=== PATIENT | female | born 1950 | race Caucasian/White ===

== ENCOUNTER → 2019-11-28 | Outpatient (CLI) | payer MEDICARE | END | disposition home or self-care (01) | LOC: LAB SHORT 14:09 → PLD 14:09 | DX: D37.09 Neoplasm of uncertain behavior of other specified sites of the oral cavity (principal) | CPT/HCPCS: 88305 ==

== ENCOUNTER 2023-07-18 16:50 | Inpatient (IN) | payer MEDICARE ==
[~2023-07-18] VITALS: Ht 157.5 cm; Wt 67.4 kg
[2023-07-18] MEDS ORDERED: NS 1,000 ML IV SCH (17:00)
[2023-07-18] MEDS ORDERED: MELO7.5 PO (17:26)
[2023-07-18] MEDS ORDERED: ATOR10 PO (17:27)
[2023-07-18] MEDS ORDERED: ESTR2 PO (17:27)
[2023-07-18] MEDS ORDERED: HYDROCODONE-AC1 EA19 PO (17:27)
[2023-07-18] MEDS ORDERED: TEMA30 PO (17:27)
[2023-07-18] MEDS ORDERED: Azithromycin 500 MG in NS 250 ML IV ONE ×2 (17:30→17:50)
[2023-07-18] MEDS ORDERED: CefTRIAXone Sodium 1,000 MG in NS 100 ML IV ONE (17:35)
[2023-07-18] MEDS ORDERED: Benzonatate 100 MG Cap PO PRN (18:10)
[2023-07-18] MEDS ORDERED: Ondansetron HCl 2 MG / ML 2ML Vial IV PRN (18:15)
[2023-07-18] MEDS ORDERED: TraMADol HCl 50 MG Tab PO PRN (18:15)
[2023-07-18] MEDS ORDERED: Temazepam 15 MG Cap PO PRN (18:15)
[2023-07-18] MEDS ORDERED: Lactated Ringer's 1,000 ML IV SCH (18:15)
[2023-07-18] MEDS ORDERED: Acetaminophen 325 MG TABLET PO PRN (18:15)
[2023-07-18] MEDS ORDERED: Piperacillin/Tazobactam Sod 3.375 GM in NS 100 ML IV ONE (19:00)
[2023-07-18] MEDS ORDERED: PAXIL2010 PO (19:10)
[2023-07-18 21:00] VITALS: BP 96/52
[2023-07-18] MEDS ORDERED: GuaiFENesin 600 MG TabCR PO SCH (21:00)
[2023-07-18] MEDS ORDERED: Lactobacil 2-S.Thermo-Bifido 1 1 Cap PO SCH (21:00)
[2023-07-18 21:15] VITALS: BP 103/65
[2023-07-18 21:30] VITALS: BP 98/69
[2023-07-19] VITALS (9 sets, daily range): BP systolic 107–157; BP diastolic 53–97
[2023-07-19] MEDS ORDERED: Piperacillin/Tazobactam Sod 3.375 GM in NS 100 ML IV SCH (03:00)
[2023-07-19 04:02] LABS: Hematocrit 37.8 % (33.0-51.0); Hemoglobin 12.4 g/dL (11.5-16.0); Mean Corpuscular HGB 29.7 pg (26.0-34.0); Mean Corpuscular HGB Conc 32.8 g/dL (31.5-36.5); Mean Corpuscular Volume 90 fL (80-100); Mean Platelet Volume 9.8 fL (9.1-12.4); Platelet Count 452 K/mm3 (150-400); RDW Coefficient Variation 13.5 % (11.7-14.2); RDW Standard Deviation 45.7 fL (35.1-46.3); Red Blood Cell Count 4.18 M/mm3 (3.80-5.20); White Blood Cell Count 45.57 K/mm3 (4.00-11.30)
[2023-07-19 04:19] LABS: Albumin, Blood 2.2 g/dL (3.4-5.0); Albumin/Globulin Ratio 0.5 (0.8-1.8); Bilirubin, Total 1.2 mg/dL (0.1-1.0); Bun/Creatinine Ratio 15.1 (12.0-20.0); Calcium, Blood 8.3 mg/dL (8.5-10.1); Creatinine, Blood 0.93 mg/dL (0.40-1.00); Globulin, Blood 4.6 g/dL (2.2-4.0); Potassium, Blood 3.9 mmol/L (3.5-5.5); Total Protein, Blood 6.8 g/dL (6.4-8.2)
[2023-07-19 04:29] LABS: International Normalized Ratio 1.08; Prothrombin Time Results 11.3 Sec (9.7-11.5)
[2023-07-19 04:43] LABS: BAND PERCENT MAN 11 % (0-8); BASOPHILS PERCENT MAN 0 % (0-2); EOSINOPHILS PERCENT MAN 0 % (0-6); LYMPHOCYTES ABSOLUTE MAN 0.91 K/mm3 (0.84-5.20); LYMPHOCYTES PERCENT MAN 2 % (21-46); MONOCYTES ABSOLUTE MAN 1.82 K/mm3 (0.16-1.47); MONOCYTES PERCENT MAN 4 % (4-13); NEUTROPHILS ABSOLUTE MAN 42.83 K/mm3 (1.96-9.15); SEG NEUTROPHILS PERCENT MAN 83 % (41-73); TOTAL CELLS COUNTED 100
[2023-07-19] MEDS ORDERED: Omeprazole 20 MG CapCR PO SCH (06:00)
--- NOTE | 2023-07-19 07:17 | NUR ---
SHIFT SUMMARY PATIENT ARRIVED TO PCU 07 VIA STRETCHER AT 2042. SHE IS ALERT AND ORIENTED X4 AND ABLE TO AMBULATE TO THE RESTROOM AND BACK TO BED WITH MINIMAL ASSISTANCE TO HELP WITH LINE MANAGEMENT. PATIENT HAS BEEN COMPLAINING OF RIGHT SIDED PAIN REACHING FROM HER RIBS DOWN TO HER HIP, MEDICATED PER EMAR FOR PAIN. PATIENT IS ON 3 LITERS O2 VIA NASAL CANULA WITH SPO2 >90%, BECOMES DYSPNIC AND TACHYPNIC UPON EXERTION. PATIENT'S VITAL SIGNS STABLE, SINUS RHYTHM/SINUS TACH IN THE LOW 100'S ON TELE, DENIES CHEST PAIN/PRESSURE. NO ACUTE ISSUES NOTED OVERNIGHT. WILL CONTINUE TO MONITOR. CALL LIGHT WITHIN REACH.
[2023-07-19] MEDS ORDERED: Enoxaparin 40 MG/0.4 ML SYR SC SCH (09:00)
[2023-07-19] MEDS ORDERED: Atorvastatin 10 MG Tab PO SCH (09:00)
--- NOTE | 2023-07-19 09:44 | NUR ---
GAVE PT. MEDS SHE ASKED SOME QUESTIONS REGARDING WHAT THEY WERE FOR AND WE TALKED ABOUT THEM. ATE BREAKFAST AND IS RESTING IN HER ROOM.
[2023-07-19] MEDS ORDERED: Ipratropium/Albuterol SulF 2.5-0.5MG/3 ML Amp INH PRN (12:50)
[2023-07-19] MEDS ORDERED: Lactated Ringer's 500 ML IV SCH (14:00)
[2023-07-19] MEDS ORDERED: Vancomycin HCL 1,000 MG in NS 100 ML IV ONE (14:00)
[2023-07-19] MEDS ORDERED: NS 250 ML IV PRN (15:25)
[2023-07-19 16:59] LABS: Appearance, Body Fluid Clear (Clear); Color, Body Fluid Yellow (None-Yellow)
[2023-07-19 17:02] LABS: Automated BF RBC Count 0.024 M/mm3 (0-0); Automated BF WBC Count 1.693 K/mm3 (0-999)
[2023-07-19 17:04] LABS: Body Fluid WBC Count 1693 /mm3 (0-999); RBC Count, Body Fluid 24000 /mm3 (0-0)
[2023-07-19 17:08] LABS: Glucose, Body Fluid 4 mg/dL; Glucose, Body Fluid 8 mg/dL
[2023-07-19 17:15] LABS: Lactate Dehydrogenase, Body Fl 1125 U/L; Lactate Dehydrogenase, Body Fl 1147 U/L; Protein, Body Fluid 5.2 g/dL; Protein, Body Fluid 5.3 g/dL
[2023-07-19 17:28] LABS: Total Cell Count, Body Fluid 100
[2023-07-19 17:32] LABS: Total Cell Count, Body Fluid 100
[2023-07-19 17:33] LABS: Appearance, Body Fluid Cloudy (Clear); Color, Body Fluid Amber (None-Yellow)
--- NOTE | 2023-07-19 17:41 | NUR ---
END OF SHIFT SUMMARY: PT WAS GREAT AND IN GOOD SPIRITS THIS SHIFT. WAS ON OXYGEN AND WANTED TO GO HOME BUT WAS WAITING TO SEE THE DOCTOR. WAS AT [facility] AND THE SON & DAUGHTER WERE IN AND OUT THROUGHOUT THE DAY. SHE IS A 1 ASSIST WHEN GOING TO THE BATHROOM BUT THE DAY WENT ON SHE DECLINED. SHE APPEARED TO BE BREATHING HARDER AND HAD A RAISE IN TEMPERATURE. THE DOCTOR WAS NOTIFIED AND HE CAME TO [facility], ORDERED A CHEST X-RAY TO RULE OUT A PE. RESULT WAS NEGATIVE FOR A PE BUT DID HAVE A CHEST TUBE INSERTED AT [facility] BY DR. DANG. CULTURES WERE SENT TO THE LAB FOR SPECIMENS PULLEED FROM THE BEDSIDE PROCEDURE AWAITING RESULTS. HAD DINNER AND NOW HAS A BEDSIDE COMMODE TO USE INSTEAD OF GOING TO THE BATHROOM. IS RESTING AND IS STAYING THE NIGHT.
[2023-07-19] MEDS ORDERED: Azithromycin 500 MG in NS 250 ML IV SCH (18:00)
[2023-07-20 02:57] VITALS: BP 142/88
--- NOTE | 2023-07-20 04:30 | NUR ---
SHIFT SUMMARY. SHIFT HAS BEEN LARGELY UNREMARKABLE. PT AOX4, PLEASANT, COOPERATIVE WITH CARE, CALLS APPROPRIATELY FOR ASSISTANCE, ABLE TO MAKE NEEDS KNOWN. CHEST TUBE REMAINS IN PLACE AND ATTACHED TO SUCTION, REVIEWED SETUP WITH [employer]IC[employer] RUSS IBANEZ, FUNCTIONING INTENDED. PAIN HAS BEEN VERY MILD AND WELL MANAGED VIA EMAR. PT HAS MAINTAINED ADEQUATE SATURATION ON 1 L O2 VIA NC WHILE AWAKE AND ASLEEP. VITALS OTHERWISE STABLE. FLUIDS INFUSING THROUGHOUT SHIFT PER EMAR. SBA TRANSFER TO BSC. HAS BEEN ABLE TO SLEEP SPORADICALLY THROUGHOUT SHIFT. HAS BEEN AT BEDSIDE THROUGHOUT SHIFT AND ASSISTS IN MAKING NEEDS KNOWN. BED LOCKED IN LOWEST POSITION. CALL LIGHT LEFT WITHIN REACH. CONTINUING TO MONITOR.
[2023-07-20 05:01] LABS: BASOPHILS ABSOLUTE AUTO 0.11 K/mm3 (0.00-0.23); BASOPHILS PERCENT AUTO 0 % (0-2); EOSINOPHILS ABSOLUTE AUTO 0.24 K/mm3 (0.00-0.68); EOSINOPHILS PERCENT AUTO 1 % (0-6); Hematocrit 36.4 % (33.0-51.0); IMMATURE GRAN ABSOLUTE AUTO 0.45 K/mm3 (0.00-0.10); IMMATURE GRAN PERCENT AUTO 1 % (0-1); LYMPHOCYTES ABSOLUTE AUTO 1.23 K/mm3 (0.84-5.20); LYMPHOCYTES PERCENT AUTO 3 % (21-46); MONOCYTES ABSOLUTE AUTO 2.16 K/mm3 (0.16-1.47); MONOCYTES PERCENT AUTO 6 % (4-13); Mean Corpuscular HGB 30.1 pg (26.0-34.0); Mean Corpuscular Volume 91 fL (80-100); Mean Platelet Volume 10.4 fL (9.1-12.4); NEUTROPHILS ABSOLUTE AUTO 32.64 K/mm3 (1.96-9.15); NEUTROPHILS PERCENT AUTO 89 % (41-73); Platelet Count 433 K/mm3 (150-400); RDW Coefficient Variation 13.9 % (11.7-14.2); RDW Standard Deviation 46.8 fL (35.1-46.3); Red Blood Cell Count 3.99 M/mm3 (3.80-5.20); White Blood Cell Count 36.83 K/mm3 (4.00-11.30)
[2023-07-20 05:03] LABS: Albumin, Blood 1.6 g/dL (3.4-5.0); Albumin/Globulin Ratio 0.4 (0.8-1.8); Bilirubin, Total 0.9 mg/dL (0.1-1.0); Bun/Creatinine Ratio 12.9 (12.0-20.0); Creatinine, Blood 0.7 mg/dL (0.40-1.00); Globulin, Blood 4.3 g/dL (2.2-4.0); Potassium, Blood 3.9 mmol/L (3.5-5.5); Total Protein, Blood 5.9 g/dL (6.4-8.2)
[2023-07-20 06:32] LABS: BAND PERCENT MAN 1 % (0-8); BASOPHILS PERCENT MAN 0 % (0-2); EOSINOPHILS ABSOLUTE MAN 0.36 K/mm3 (0.00-0.68); EOSINOPHILS PERCENT MAN 1 % (0-6); LYMPHOCYTES PERCENT MAN 3 % (21-46); MONOCYTES ABSOLUTE MAN 2.57 K/mm3 (0.16-1.47); MONOCYTES PERCENT MAN 7 % (4-13); NEUTROPHILS ABSOLUTE MAN 32.77 K/mm3 (1.96-9.15); SEG NEUTROPHILS PERCENT MAN 88 % (41-73); TOTAL CELLS COUNTED 100
[2023-07-20 07:30] VITALS: BP 141/72
[2023-07-20] MEDS ORDERED: Lactated Ringer's 1,000 ML IV SCH (07:40)
[2023-07-20 11:27] VITALS: BP 122/66
[2023-07-20] MEDS ORDERED: Alteplase 1 MG/ML 10 MG,NS 30 ML in Syringe 1 SYR XX SCH (11:35)
[2023-07-20] MEDS ORDERED: Dornase Alfa 5 MG,NS 25 ML in Syringe 1 SYR XX SCH (11:35)
--- NOTE | 2023-07-20 11:40 | NUR ---
STARTED NEW BAG OF ABX AND DOCTOR NICOLE JUST LEFT BEDSIDE. TALKED TO PT ABOUT GETTING A CLOT BUSTER AND WILL BE BACK IN AN HR TO DO THAT. HAS AND SISTER IN LAW IN ROOM WITH CALL LIGHT IN REACH
--- NOTE | 2023-07-20 14:14 | NUR ---
CHEST TUBE WAS INSERTED AGAIN BUT HER OTHER NURSE AND WAS DRAINING. STATED SHE FEELS A LITTLE PLANT ELECTRICIAN AND CAN BREATH A LITTLE BETTER. SHE IS GOING TO REST AND HAS THE CALL LIGHT WITHIN REACH.
[2023-07-20 14:49] VITALS: BP 131/70
--- NOTE | 2023-07-20 14:56 | NUR ---
CHARTED AFTERNOON VITALS AND SHE IS GOING TO TRY TO GET SOME MORE REST. HAS THE CALL LIGHT WITHIN REACH
--- NOTE | 2023-07-20 15:20 | NUR ---
REQUESTED SOME PAIN MEDICATION FOR BREAKTHROUGH PAIN AND A NEBULIZER TX FROM RT. PT WENT TO THE BATHROOM, IS NOW RESTING IN BED AND HAS THE CALL LIGHT WITHIN REACH.
[2023-07-20] MEDS ORDERED: Vancomycin HCL 1,000 MG in NS 100 ML IV SCH (16:00)
--- NOTE | 2023-07-20 17:51 | NUR ---
END OF SHIFT SUMMARY: PT CAME IN WITH SEPSIS RELATED TO PNEUMONIA. IS A&OX4 AND ACTIVE IN HER PLAN OF CARE. IS ON TELEMETRY WITH A RYTHM OF SINUS TACH WITH RATES 110-120. ON 2L NC AND BASELINE AT HOME ON ROOM AIR. HAD DR RIVERA COME BY AND HE FLUSHED THE CHEST TUBE AND ADMINISTERED A BLOOD CLOT BUSTER TO DISSOLVE THE POCKETS OF FLUID IN HER LUNGS AND REATTACHED THE SUCTION 1HR LATER. HAS HAD GOOD OUTPUT AND ORDERED A CHEST CT FOR TOMORROW. HE WILL BASE OFF THE CT IF SHE WILL NEED ANOTHER BLOOD CLOT BUSTER DEPENDING ON THE AMOUNT OF FLUID AFTER IMAGING. HER PAIN INCREASED AFTER THAT EXPECTED AND NEEDED PAIN MEDICATION. SHE IS STILL 1 PERSON ASSIST TO USE THE COMMODE AND IS AT BEDSIDE WITH HER.
[2023-07-20 19:44] VITALS: BP 131/67
[2023-07-21] VITALS (7 sets, daily range): BP systolic 111–143; BP diastolic 60–76
[2023-07-21 03:57] LABS: BASOPHILS ABSOLUTE AUTO 0.07 K/mm3 (0.00-0.23); BASOPHILS PERCENT AUTO 0 % (0-2); EOSINOPHILS ABSOLUTE AUTO 0.11 K/mm3 (0.00-0.68); EOSINOPHILS PERCENT AUTO 0 % (0-6); Hematocrit 32.3 % (33.0-51.0); IMMATURE GRAN ABSOLUTE AUTO 0.25 K/mm3 (0.00-0.10); IMMATURE GRAN PERCENT AUTO 1 % (0-1); LYMPHOCYTES ABSOLUTE AUTO 1.12 K/mm3 (0.84-5.20); LYMPHOCYTES PERCENT AUTO 4 % (21-46); MONOCYTES ABSOLUTE AUTO 1.94 K/mm3 (0.16-1.47); MONOCYTES PERCENT AUTO 7 % (4-13); Mean Corpuscular HGB 29.7 pg (26.0-34.0); Mean Corpuscular HGB Conc 34.1 g/dL (31.5-36.5); Mean Corpuscular Volume 87 fL (80-100); Mean Platelet Volume 10.2 fL (9.1-12.4); NEUTROPHILS ABSOLUTE AUTO 25.12 K/mm3 (1.96-9.15); NEUTROPHILS PERCENT AUTO 88 % (41-73); Platelet Count 538 K/mm3 (150-400); RDW Coefficient Variation 13.8 % (11.7-14.2); RDW Standard Deviation 44.3 fL (35.1-46.3); White Blood Cell Count 28.61 K/mm3 (4.00-11.30)
[2023-07-21 04:16] LABS: Bun/Creatinine Ratio 10.2 (12.0-20.0); Creatinine, Blood 0.59 mg/dL (0.40-1.00); Potassium, Blood 3.2 mmol/L (3.5-5.5)
--- NOTE | 2023-07-21 05:01 | NUR ---
SHIFT SUMMARY. NO ACUTE CHANGES THROUGHOUT SHIFT THUS FAR. PT AOX4, PLEASANT, COOPERATIVE WITH CARE, CALLS APPROPRIATELY, ABLE TO MAKE NEEDS KNOWN. HAS NOT BEEN ABLE TO SLEEP WELL THROUGHOUT SHIFT, SPORADIC AND INFREQUENT SLEEP. VITALS HAVE BEEN STABLE. FLUIDS INFUSING THROUGHOUT SHIFT PER EMAR. CHEST TUBE FUNCTIONING PROPERLY, HAS BEEN FLUSHED FEW TIMES THIS SHIFT THUS FAR TO MAINTAIN PROPER FUNCTION. CHECKED WITH RUSS IBANEZ TOOL AND DIE MAKER, FUNCTIONING INTENDED. SOME SLOW SUCTION AT TIME DUE TO VISCOSITY OF DRAINAGE. PAIN AT SITE HAS BEEN VERY MINIMAL AND WELL MANAGED PER EMAR. AT BEDSIDE THROUGHOUT MOST OF SHIFT AND ASSISTS IN MAKING NEEDS KNOWN. STEADY SBA TRANSFER TO BEDSIDE COMMODE, CONSISTENT OUTPUT THIS SHIFT CHARTED APPROPRIATELY. PT HAS BEEN TITRATED DOWN TO 1 L O2 VIA NC WITH NOTED DECREASED WORK OF BREATHING COMPARED TO PREVIOUS SHIFT WITH THIS RN. BED LOCKED IN LOWEST POSITION. CALL LIGHT LEFT WITHIN REACH. CONTINUING TO MONITOR.
--- NOTE | 2023-07-21 06:47 | NUR ---
CALL FROM [employer]. 4 SECOND RUN OF SVT @ 1648. PT FEELS FINE, NO CHANGE IN CONDITION. CONTINUING TO MONITOR.
[2023-07-21] MEDS ORDERED: Potassium Chloride 20 MEQ TabCR PO ONE (08:00)
[2023-07-21] MEDS ORDERED: Dornase Alfa 5 MG,NS 25 ML in Syringe 1 SYR XX SCH (11:00)
[2023-07-21] MEDS ORDERED: Dornase Alfa 1 MG/ML Neb XX ONE (11:00)
[2023-07-21] MEDS ORDERED: Alteplase 1 MG/ML 10 MG,NS 30 ML in Syringe 1 SYR XX SCH (11:00)
--- NOTE | 2023-07-21 11:24 | NUR ---
WAS TIRED SHE DIDN'T SLEEP WELL LAST NIGHT, GOT MORNING MEDS, HAD BREAKFAST AND IS WAITING FOR DR. RIVERA TO ADMINISTER MORE MEDICATION INTO CHEST TUBE.
--- NOTE | 2023-07-21 12:06 | NUR ---
CHEST TUBE CLAMPED MD RIVERA TO BEDSIDE FOR ITRAPLEURAL MEDICATION ADMINISTRATION. CHEST TUBING CLAMPED W/ MD INSTRUCTION TO RECONNECT TO SUCTION IN 1 HR. PT REPORTING "ONE, ONE & A HALF" OUT OF 10 AT CHEST TUBE INSERTION SIDE. PT VSS. SPO2 > 92% ON RA. MONITOR SHOWING ST, HR 110s.
--- NOTE | 2023-07-21 13:10 | NUR ---
CHEST TUBE TO SUCTION CHEST TUBE REAPPLIED TO SUCTION PER MD RIVERA INSTRUCTION. CT DRAINING YELLOW/RED OUTPUT.
--- NOTE | 2023-07-21 13:28 | NUR ---
REASSESSED PAIN AFTER ADMINISTERING TYLENOL EARLIER AND IS ASKING FOR SOMETHING STRONGER BUT SHE IS AT A 3 CURRENTLY. NOTIFIED RN TO ADMINISTER THE NEXT PAIN MEDICATION.
--- NOTE | 2023-07-21 15:00 | NUR ---
CHEST TUBE DRAINAGE SYSTEM CHANGED CHEST TUBE DRAINAGE SYSTEM/COLLECTION CHAMBER CHANGED W/ MD RIVERA AT BEDSIDE. COLLECTION CHAMBER W/ APPROX 1600 MLS RED OUTPUT.
--- NOTE | 2023-07-21 15:44 | NUR ---
AMBULATION CHEST TUBE DISCONNECTED FROM DRAINAGE SYSTEM FOR PT TO AMBULATE PER MD NICOLE HASTINGS. PT AMBULATING IN HALLWAY FROM PCU-07 TO CLOSEST ICU DOOR THEN SAT ON BENCH TO TAKE A BREAK. SPO2 > 92% ON 2L NC. MONITOR SHOWING ST, HR 110s DURING AMBULATION. PT AMBULATED BACK TO & IS NOW SITTING UP IN CHAIR. DRAINAGE SYSTEM RECONNECTED.
--- NOTE | 2023-07-21 16:55 | NUR ---
END OF SHIFT SUMMARY: PT WAS ACTIVE IN HER CARE TODAY. DID NOT SLEEP WELL LAST NIGHT AND WAS TIRED TODAY AND TRIED TO SLEEP. A&OX4 AND PERRLA. SATS >92% ON 1L MOST OF DAY. DID TAKE OFF NASAL CANNULA FOR A BIT AND TOLERATED WELL WITH SATS >95% DR. RIVERA CAME TO BEDSIDE AND ADMINISTERED BLOD CLOT BUSTER MEDICATIONS AGAIN AND LET IT SET FOR 1HR. REATTACHED SUCTION TO THE CHEST TUBE AND SHE ASKED FOR SOME PAIN MEDICATION SHE WAS AT ABOUT A 3. I GAVE TYLENOL AND AFTER A REASSEMENT SHE ASKED FOR SOMETHING STRONGER HE PAIN WAS ABOUT A 3 STILL. HER OTHER RN ADMINISTERED THAT AND SHE WAS ABLE TO REST FOR A BIT. GOT UP AND WALKED TO THE ICU HALLWAY AND BACK, SAT IN HER CHAIR FOR A WHILE AFTER. GOT BACK IN BED AND WAS TRYING TO GET SOME MORE REST.
[2023-07-22 03:35] VITALS: BP 135/70
[2023-07-22 03:36] LABS: BASOPHILS ABSOLUTE AUTO 0.08 K/mm3 (0.00-0.23); BASOPHILS PERCENT AUTO 0 % (0-2); EOSINOPHILS ABSOLUTE AUTO 0.12 K/mm3 (0.00-0.68); EOSINOPHILS PERCENT AUTO 1 % (0-6); Hematocrit 33.3 % (33.0-51.0); Hemoglobin 11.2 g/dL (11.5-16.0); IMMATURE GRAN ABSOLUTE AUTO 0.36 K/mm3 (0.00-0.10); IMMATURE GRAN PERCENT AUTO 2 % (0-1); LYMPHOCYTES ABSOLUTE AUTO 1.47 K/mm3 (0.84-5.20); LYMPHOCYTES PERCENT AUTO 6 % (21-46); MONOCYTES ABSOLUTE AUTO 1.84 K/mm3 (0.16-1.47); MONOCYTES PERCENT AUTO 8 % (4-13); Mean Corpuscular HGB 29.2 pg (26.0-34.0); Mean Corpuscular HGB Conc 33.6 g/dL (31.5-36.5); Mean Corpuscular Volume 87 fL (80-100); Mean Platelet Volume 9.6 fL (9.1-12.4); NEUTROPHILS ABSOLUTE AUTO 20.51 K/mm3 (1.96-9.15); NEUTROPHILS PERCENT AUTO 84 % (41-73); Platelet Count 597 K/mm3 (150-400); Red Blood Cell Count 3.83 M/mm3 (3.80-5.20); White Blood Cell Count 24.38 K/mm3 (4.00-11.30)
[2023-07-22 03:56] LABS: Albumin, Blood 1.5 g/dL (3.4-5.0); Albumin/Globulin Ratio 0.4 (0.8-1.8); Bilirubin, Total 0.6 mg/dL (0.1-1.0); Bun/Creatinine Ratio 9.1 (12.0-20.0); Calcium, Blood 7.9 mg/dL (8.5-10.1); Creatinine, Blood 0.55 mg/dL (0.40-1.00); Globulin, Blood 3.7 g/dL (2.2-4.0); Potassium, Blood 3.1 mmol/L (3.5-5.5); Total Protein, Blood 5.2 g/dL (6.4-8.2)
--- NOTE | 2023-07-22 05:45 | NUR ---
SHIFT SUMMARY. PT DOING WELL THROUGHOUT SHIFT OVERALL. ABLE TO SLEEP BETTER THAN PREVIOUS SHIFTS WITH THIS RN. PAIN HAS BEEN MANAGED VIA EMAR. EARLY THIS MORNING, PT COMPLAINED OF ESCALATING RIGHT SIDE PAIN RIGHT BELOW SITE OF CHEST TUBE. ASSESSED SITE, NO CHANGES AT SITE, LUNG SOUNDS UNCHANGED. PAIN DIMINISHED GREATLY AFTER TRAMADOL ADMINISTRATION AND PT HAS MOSTLY BEEN ABLE TO SLEEP SINCE. NO CHANGE IN WORK OF BREATHING OR OXYGEN DEMANDS THROUGHOUT SHIFT. PT REMAINS STEADY SBA TO BEDSIDE COMMODE. TELE ON THROUGHOUT SHIFT, NO ACUTE CHANGES OR EVENTS. VITALS HAVE BEEN STABLE. FLUIDS INFUSING THROUGHOUT SHIFT PER EMAR, ABX ADMINISTERED ON SCHEDULE WITHOUT DIFFICULTY. BED LOCKED IN LOWEST POSITION. CALL LIGHT LEFT WITHIN REACH. CONTINUING TO MONITOR.
[2023-07-22 08:23] VITALS: BP 128/72
[2023-07-22] MEDS ORDERED: Potassium Chloride 20 MEQ TabCR PO SCH (09:00)
--- NOTE | 2023-07-22 09:03 | NUR ---
AM NOTE... ASSUMED CARE OF PT AT 0700. PT IS A&Ox4 SBA IN THE ROOM. SHE IS ON 2L WITH O2 SATS>90% L/S ON THE LEFT ARE CLEAR T/O SLIGHLTY DIM IN THE LLL. RIGHT UPPER LOBE CLEAR, RML/RLL COARSE CRACKLES NOTE AND DIM. CHEST TUBE SITE IS STABLE, NO CREPITUS OR DRAINAGE NOTED. DRAINAGE FROM THE CHEST TUBE IS NOTED TO BE SEROSANGUINOUS WITH SOME THICK PURULENT DRAINAGE NOTED. PT DENIES PAIN AT THIS TIME. SHE IS IN SINUS TACH IN THE 100'S-110'S BP IS STABLE WITH MAPS>65. NO EDEMA NOTED ON THIS ASSESSMENT. OASIS ASSESSMENT: NO BUBBLES OR FLUCTUATION NOTED ON THIS ASSESSMENT. CALL LIGHT IN REACH WILL CONTINUE TO MONITOR.
[2023-07-22] MEDS ORDERED: Oxymetazoline 0.05% Nasal Relief Spray 15mL BTL PRN (11:40)
[2023-07-22 11:42] VITALS: BP 114/71
[2023-07-22 15:18] LABS: Vancomycin, Trough 3.5 ug/mL (5.0-10.0)
[2023-07-22] MEDS ORDERED: Vancomycin HCL 1,250 MG in NS 250 ML IV SCH (16:00)
[2023-07-22 18:10] VITALS: BP 129/66
--- NOTE | 2023-07-22 18:11 | NUR ---
SHIFT SUMMARY.... NO ACUTE NEGATIVE CHANGES NOTED THIS SHIFT. PT'S VS HAVE BEEN STABLE T/O THIS SHIFT. CHEST TUBE SITE HAS BEEN STABLE. CHEST TUBE HAS DRAINED 280MLS OF SEROSANGUINEOUS FLUID. PT WAS TITRATED OFF TO RA THIS AFTERNOON, O2 SATS ON RA HAVE BEEN 92-95%. PT WAS DISCONNECTED FROM CHEST TUBE AND WENT FOR A WALK WITH HER AROUND THE UNIT. PT TOLERATED THE WALK WELL. CALL LIGHT IN REACH WILL CONTINUE TO MONITOR UNTIL REPORT IS GIVEN TO ONCOMING RN.
[2023-07-22 20:01] VITALS: BP 127/67
[2023-07-22 23:40] VITALS: BP 148/63
[2023-07-23] MEDS ORDERED: Estradiol 1 MG Tab PO SCH
[2023-07-23 03:21] VITALS: BP 137/64
[2023-07-23 03:47] LABS: BASOPHILS ABSOLUTE AUTO 0.11 K/mm3 (0.00-0.23); BASOPHILS PERCENT AUTO 1 % (0-2); EOSINOPHILS ABSOLUTE AUTO 0.25 K/mm3 (0.00-0.68); EOSINOPHILS PERCENT AUTO 2 % (0-6); Hematocrit 31.7 % (33.0-51.0); Hemoglobin 10.5 g/dL (11.5-16.0); IMMATURE GRAN ABSOLUTE AUTO 0.44 K/mm3 (0.00-0.10); IMMATURE GRAN PERCENT AUTO 3 % (0-1); LYMPHOCYTES ABSOLUTE AUTO 1.73 K/mm3 (0.84-5.20); LYMPHOCYTES PERCENT AUTO 10 % (21-46); MONOCYTES ABSOLUTE AUTO 1.46 K/mm3 (0.16-1.47); MONOCYTES PERCENT AUTO 9 % (4-13); Mean Corpuscular HGB 29.1 pg (26.0-34.0); Mean Corpuscular HGB Conc 33.1 g/dL (31.5-36.5); Mean Corpuscular Volume 88 fL (80-100); Mean Platelet Volume 9.5 fL (9.1-12.4); NEUTROPHILS ABSOLUTE AUTO 12.85 K/mm3 (1.96-9.15); NEUTROPHILS PERCENT AUTO 76 % (41-73); Platelet Count 610 K/mm3 (150-400); RDW Coefficient Variation 14.2 % (11.7-14.2); Red Blood Cell Count 3.61 M/mm3 (3.80-5.20); White Blood Cell Count 16.84 K/mm3 (4.00-11.30)
[2023-07-23 04:04] LABS: Albumin, Blood 1.4 g/dL (3.4-5.0); Albumin/Globulin Ratio 0.4 (0.8-1.8); Bilirubin, Total 0.5 mg/dL (0.1-1.0); Bun/Creatinine Ratio 7.4 (12.0-20.0); Calcium, Blood 8.1 mg/dL (8.5-10.1); Creatinine, Blood 0.68 mg/dL (0.40-1.00); Globulin, Blood 3.9 g/dL (2.2-4.0); Potassium, Blood 3.5 mmol/L (3.5-5.5); Total Protein, Blood 5.3 g/dL (6.4-8.2)
--- NOTE | 2023-07-23 05:30 | NUR ---
SHIFT SUMMARY: PT A/Ox4 THROUGHOUT SHIFT AND CALL APPROPRIATELY FOR HELP. REMAINS ON ROOM AIR WITH SPO2>90% WITH NO COMPLAINTS OF SOB. CHEST TUBE IN PLACE TO RT POSTERIOR, W/ MINIMAL OUTPUT, DRESSING INTACT, CLEAN, AND DRY, W/ NO ABNORMALITIES. PT DENIES PAIN. TELE: SINUS TACH 100-120s, PT DENIES CHEST PAIN. PT 1P ASSIST TO BSC, URINE PALE YELLOW. SOME LOOSE STOOL. REMAINS AT BEDSIDE. BED IN LOWEST POSITION W/ CALL LIGHT IN REACH. WILL GIVE REPORT TO ONCOMING RN.
[2023-07-23 07:44] VITALS: BP 137/70
[2023-07-23 11:45] VITALS: BP 131/75
[2023-07-23 16:44] VITALS: BP 139/71
[2023-07-23 19:49] VITALS: BP 136/73
[2023-07-24] MEDS ORDERED: Potassium Chloride 20 MEQ/15 ML UDC PO SCH (01:00)
[2023-07-24 02:11] VITALS: BP 145/81
[2023-07-24 04:30] LABS: BASOPHILS ABSOLUTE AUTO 0.14 K/mm3 (0.00-0.23); BASOPHILS PERCENT AUTO 1 % (0-2); EOSINOPHILS ABSOLUTE AUTO 0.35 K/mm3 (0.00-0.68); EOSINOPHILS PERCENT AUTO 2 % (0-6); Hematocrit 33.6 % (33.0-51.0); Hemoglobin 11.3 g/dL (11.5-16.0); IMMATURE GRAN ABSOLUTE AUTO 0.45 K/mm3 (0.00-0.10); IMMATURE GRAN PERCENT AUTO 3 % (0-1); LYMPHOCYTES ABSOLUTE AUTO 1.59 K/mm3 (0.84-5.20); LYMPHOCYTES PERCENT AUTO 10 % (21-46); MONOCYTES ABSOLUTE AUTO 1.56 K/mm3 (0.16-1.47); MONOCYTES PERCENT AUTO 10 % (4-13); Mean Corpuscular HGB 29.6 pg (26.0-34.0); Mean Corpuscular HGB Conc 33.6 g/dL (31.5-36.5); Mean Corpuscular Volume 88 fL (80-100); Mean Platelet Volume 9.4 fL (9.1-12.4); NEUTROPHILS ABSOLUTE AUTO 11.25 K/mm3 (1.96-9.15); NEUTROPHILS PERCENT AUTO 73 % (41-73); Platelet Count 681 K/mm3 (150-400); RDW Coefficient Variation 14.1 % (11.7-14.2); RDW Standard Deviation 45.5 fL (35.1-46.3); Red Blood Cell Count 3.82 M/mm3 (3.80-5.20); White Blood Cell Count 15.34 K/mm3 (4.00-11.30)
[2023-07-24 04:51] LABS: Calcium, Blood 8.1 mg/dL (8.5-10.1); Creatinine, Blood 0.88 mg/dL (0.40-1.00); Potassium, Blood 4.1 mmol/L (3.5-5.5)
--- NOTE | 2023-07-24 05:10 | NUR ---
SHIFT SUMMARY: PT A/OX4 AND COOPERATIVE W/CARE T/O THE NIGHT. CHEST TUBE DC'D ON DAYSHIFT. DRESSING REMAINS INTACT, CLEAN, DRY W/ NO ABNORMALITIES. PT DENIES PAIN TO SITE. PT SLEPT WELL, SPO2 DESAT TO 88 AT SLEEP, 1L NC PLACED SPO2 >90s. PT DENIES SOB WHILE AWAKE. PT SBA TO BSC. AT BEDSIDE T/O THE NIGHT. BED IN LOWEST POSITION W/ CALL LIGHT IN REACH. WILL GIVE REPORT TO ONCOMING RN.
[2023-07-24 07:46] VITALS: BP 138/60
[2023-07-24 11:25] VITALS: BP 136/52
--- NOTE | 2023-07-24 13:52 | NUR ---
WENT FOR A WALK THIS MORNING AND DOES NOT HAVE THE OXYGEN ON NOR PUT IT BACK ON ONCE WE RETURNED TO THE ROOM. IS SATTING >95% ON ROOM AIR AND IS WAITING TO FINISH THE CURRENT ANTIBIOTIC RUNNING THROUGH IV BEFORE GETTING DISCHARGED. HAS THE CALL LIGHT WITHIN REACH AND IS RESTING
[2023-07-24] MEDS ORDERED: GUAIFENESIN ER600 MG PO (14:22)
[2023-07-24] MEDS ORDERED: OXYM.05NI (14:23)
[2023-07-24] MEDS ORDERED: VISBIOME 112.51 EACH PO (14:24)
[2023-07-24] MEDS ORDERED: AMOX500 PO (14:25)
--- NOTE | 2023-07-24 14:57 | NUR ---
PT HAS DISCHARGED HOME WITH PERSONAL BELONGINGS, AND DISCHARGE INSTRUCTIONS. PERIPHERAL IV'S REMOVED & WENT OVER DISCHARGE INSTURCTIONS. PT TAKEN OUT VIA WHEELCHAIR.
== END 2023-07-24 14:49 | disposition home or self-care (01) | DRG 871 ==
LOC: ER 16:50 → PCU 18:10
PROVIDERS: Internal Medicine; Internal Medicine Critical Care Medicine; Nurse Practitioner Acute Care; ADMIT Internal Medicine
PROC: 3E03329 Introduction of Other Anti-infective into Peripheral Vein, Percutaneous Approach (ICD-10-PCS; 2023-07-18)
PROC: 0W9930Z Drainage of Right Pleural Cavity with Drainage Device, Percutaneous Approach (ICD-10-PCS; principal; 2023-07-19)
DX: A40.8 Other streptococcal sepsis (principal); J18.9 Pneumonia, unspecified organism; J96.01 Acute respiratory failure with hypoxia; J86.9 Pyothorax without fistula; E87.1 Hypo-osmolality and hyponatremia; J91.8 Pleural effusion in other conditions classified elsewhere; R65.20 Severe sepsis without septic shock; K21.9 Gastro-esophageal reflux disease without esophagitis; E78.5 Hyperlipidemia, unspecified; E86.1 Hypovolemia; F41.9 Anxiety disorder, unspecified; F32.A Depression, unspecified; Z88.2 Allergy status to sulfonamides; Z88.1 Allergy status to other antibiotic agents; R10.9 Unspecified abdominal pain; R79.1 Abnormal coagulation profile
CPT/HCPCS: 36415; 71045; 71100; 71260; 80048; 80053; 80202; 82945; 83605; 83615; 84157; 85025; 85379; 85610; 87040; 87070; 87075; 87205; 87449; 88108; 88305; 89051; 94640; 94664; 94760; 94762; 96365; 96367; 99284-25; A9270; J0456; J0696; J1650; J2543; J2997; J3370; J7030; J7050; J7120; Q9967